=== PATIENT | male | born 1980 | race Caucasian/White ===

== ENCOUNTER 2016-11-29 08:16 | Day surgery (SDC) | payer OTHER ==
[~2016-11-29] VITALS: Ht 198.1 cm; Wt 98.1 kg
[2016-11-29] VITALS (19 sets, daily range): BP systolic 109–135; BP diastolic 62–80; PULSE 60–82; RESP 12–19; Ht 198.1 cm; Wt 98.1 kg
[~2016-11-29 08:16] MED LIST: CEFAZOLIN 1 GM INJ ONE
[2016-11-29] MEDS ORDERED: GLYCOPYRROLATE 1 MG INJ ONE (08:39)
[2016-11-29] MEDS ORDERED: LIDOCAINE 2% (SDV) 5 ML INJ ONE (08:39)
[2016-11-29] MEDS ORDERED: NEOSTIGMINE 3 MG/3 ML SYRINGE ONE (08:39)
[2016-11-29] MEDS ORDERED: PROPOFOL 20 ML ONE (08:39)
[2016-11-29] MEDS ORDERED: ROCURONIUM 50 MG INJ ONE (08:39)
[2016-11-29] MEDS ORDERED: MIDAZOLAM 1 MG/ML 2 ML INJ ONE (08:40)
[2016-11-29] MEDS ORDERED: FENTAnyl 50 MCG/ML VIAL ONE (08:40)
[2016-11-29] MEDS ORDERED: DEXAMETHASONE 4 MG/ML 1 ML INJ ONE (08:40)
[2016-11-29] MEDS ORDERED: ONDANSETRON 4 MG INJ ONE (08:40)
[2016-11-29] MEDS ORDERED: ROPIVACAINE 0.5 % 30 ML VIAL ONE ×2 (08:41→11:04)
[2016-11-29] MEDS ORDERED: FINA1TAB7 PO (09:01)
[2016-11-29] MEDS ORDERED: VALA500T PO (09:02)
[2016-11-29] MEDS ORDERED: SUCCINYLCHOLINE CHLORIDE 100 MG/5 ML SYG IV ONE (10:12)
[2016-11-29] MEDS ORDERED: CEFAZOLIN 1 GM INJ ONE (10:16)
[2016-11-29] MEDS ORDERED: SOD CHLORIDE 0.9% 1,000 ML IV SCH (10:52)
--- NOTE | 2016-11-29 10:52 | HPN ---
Date/Time of Note Date/Time of Note DATE: 11/29/16 TIME: 10:52 Interval H&P Admission Note Pt. seen H&P reviewed: No system changes LUIS GENTILE MD Nov 29, 2016 10:52
[2016-11-29] MEDS ORDERED: ONDANSETRON 4 MG INJ IV PRN ×2 (11:00→14:00)
[2016-11-29] MEDS ORDERED: morphine 2 MG INJ IV PRN (11:00)
[2016-11-29] MEDS ORDERED: OXYCODONE/ACETAMINOPHEN (5/325) TAB PO PRN ×4 (11:00→14:00)
[2016-11-29] MEDS ORDERED: POLYMYXIN/BACITRACIN 1L IRRIG ONE ×2 (11:05→12:52)
[2016-11-29] MEDS ORDERED: POVIDONE IODINE 10% 28.4 GM OINT ONE (11:05)
[2016-11-29] MEDS ORDERED: CA CHLORIDE 10% 10 ML SYRINGE ONE (12:12)
[2016-11-29] MEDS ORDERED: THROMBIN 5000 UNIT VIAL ONE (12:12)
[2016-11-29] MEDS ORDERED: MIDAZOLAM 1 MG/ML 2 ML INJ IV PRN (14:00)
[2016-11-29] MEDS ORDERED: FENTAnyl 50 MCG/ML VIAL IV PRN ×2 (14:00)
[2016-11-29] MEDS ORDERED: ATROPINE 1 MG/10 ML SYRINGE IV PRN (14:00)
[2016-11-29] MEDS ORDERED: morphine (1 MG/ML) 10ML SYRINGE IV PRN ×3 (14:00)
[2016-11-29] MEDS ORDERED: LABETALOL HCL 20MG INJ IV PRN (14:00)
[2016-11-29] MEDS ORDERED: EPHEDrine SULFATE 50 MG/5 ML SYG IV PRN (14:00)
[2016-11-29] MEDS ORDERED: MEPERIDINE 25 MG INJ IV PRN (14:00)
[2016-11-29] MEDS ORDERED: DIPHENHYDRAMINE 50 MG INJ IV PRN (14:00)
[2016-11-29] MEDS ORDERED: HYDROmorphONE (0.2 MG/ML) 10ML SYG IV PRN ×3 (14:00)
[2016-11-29] MEDS ORDERED: hydrALAzine 20 MG INJ IV PRN (14:00)
--- NOTE | 2016-11-29 15:13 | OPR ---
DATE OF OPERATION: 11/29/2016 PREOPERATIVE DIAGNOSIS: Complete tear of the left Achilles tendon. POSTOPERATIVE DIAGNOSIS: Complete tear of the left Achilles tendon. NAME OF OPERATION: 1. Repair left Achilles tendon tear. 2. Local tissue augmentation of the repair. 3. Release of deep fascia posterior compartment. 4. Short-leg cast. SURGEON: Benja Gentile MD MORTGAGE LOAN REVIEWER: JULISSA CASSIDY MD ANESTHESIA: General with a popliteal block. TOURNIQUET TIME: 58 minutes. DESCRIPTION OF PROCEDURE: The patient taken to the operating room and placed in supine. Satisfactory popliteal block was given. Satisfactory endotracheal anesthesia was administered, 2 grams Ancef given intravenously. The patient was rolled in the prone position. Both legs were simultaneously prepped and draped in the usual manner. The right leg was draped out of the field. The left leg was approached. A posteromedial incision was made medial to the Achilles tendon, dissection carried down to subcutaneous tissue. No retraction was used on the skin at all during the case. We used 3-0 undyed Vicryl for retraction. We elevated the paratenon minimally. We then made an incision in the paratenon and split it proximally and distally. There was complete rupture of the Achilles with a lot of fragmentation of the proximal portion, distal portion was in better shape. The proximal and distal portions of the Achilles were freed up and mobilized. The remaining strands were cut between the proximal and distal wound. The wounds were irrigated with antibiotic solution. The proximal portion of the Achilles was mobilized. #2 FiberWire was weaved through the proximal portion of the Achilles with a Krackow stitch. One stitch was weaved around 1 side through the other, brought out the center of the Achilles. A second Krackow stitch was placed through the distal portion of the Achilles. With the foot plantarflexed, both sutures were simultaneously tied and then tied again on the lateral side of the foot. Prior to doing this, the posterior deep compartment was released to facilitate paratenon healing. The wounds were irrigated with antibiotic solution, 3-0 PDS was used to weave circumferentially around the tendon repair and local tissue was used to repair with 3-0 PDS. When we were completed with our repair, the Patel test was now negative. We flexed both ankles up prior to tying our suture and at the end of our suturing, both Achilles were in equal amount of plantar flexion and it was well attached to the uninjured side. Wounds were irrigated with antibiotic solution. The paratenon was closed with a running 3-0 undyed Vicryl. It should be noted during the case, we also sterilely aspirated blood. It was spun down into PRP and PPP. After the paratenon was closed of the Achilles, the PRP was injected into the tendon sheath to facilitate healing. The wounds were then carefully irrigated again. Subcutaneous tissue was closed with 3-0 undyed Vicryl and the skin with 4-0 black nylon. Compression dressing was applied after a saphenous nerve block had been done. The patient was then placed in a short leg cast in gravity plantarflexion and the cast was split in the recovery room. End of the procedure, the sponge and needle count was correct. The patient tolerated procedure well. CLINICAL BIOCHEMICAL GENETICIST ORTHOPEDIC SURGEON: During the procedure, an assistant sales director orthopedic surgeon was used at my request. The assistant sales director helped facilitate retraction; also, the assistant sales director tied 1 side of the Achilles while I simultaneously tied the other so that we maintain uniform compression across the repair. The assistant sales director also helped with the paratenon repair. Without a skilled assistant sales director, this could not have been performed; therefore, he should be compensated appropriately. Dictated By: BENJA GENTILE MD RF/NTS Conf#: [id number] DID#: [id number] CC: JULISSA CASSIDY MD;*EndCC* MTDD
== END 2016-11-29 16:00 | disposition home or self-care (01) ==
LOC: SDS 08:16
PROVIDERS: ATTEND Orthopaedic Surgery
DX: S86.019A Strain of unspecified Achilles tendon, initial encounter (principal)
CPT/HCPCS: 27650; 86999; J0690; J1100; J2250; J2405; J2710; J2795; J3010; J7999